=== PATIENT | male | born 1970 | race Two or more races ===

== ENCOUNTER 2017-12-09 07:40 | Day surgery (SDC) | payer OTHER ==
[~2017-12-09 07:40] MED LIST: AMBIEN5 MG PO; BACTRIM DS TAB1 EACH PO; LEVAQUIN750 MG PO; TAMS0.4C PO; TRAMADOL HCL50 MG PO; ULTRACET PO; ULTRAM50 MG PO; URIN D.S. TABL1 EACH PO
[2017-12-09] MEDS ORDERED: CEFUROXIME500 MG PO (12:43)
[2017-12-09] MEDS ORDERED: ULTRACET PO (12:43)
== END 2017-12-09 14:55 | disposition home or self-care (01) ==
LOC: CIR.AMB 07:40
DX: N20.1 Calculus of ureter (principal)